=== PATIENT | male | born 1980 | race Two or more races ===

== ENCOUNTER 2019-05-09 22:32 | Emergency (ER) | payer MEDICAID, OTHER ==
[~2019-05-09] VITALS: Ht 165.1 cm; Wt 74.8 kg
--- NOTE | 2019-05-09 23:40 | NUR ---
C/C HEMMORRHOID PAIN SINCE FRIDAY, OTC CREAM WITH NO RELIEF
[2019-05-10 00:07] LABS: APPEARANCE,URINE Clear (CLEAR); BILIRUBIN,URINE Negative (NEGATIVE); BLOOD, URINE Negative Ery/uL (NEGATIVE); COLOR,URINE Yellow (YELLOW); KETONES,URINE Negative (NEGATIVE); LEUKOCYTE ESTERASE ,URINE Negative (NEGATIVE); NITRITE, URINE Negative (NEGATIVE); PROTEIN,URINE Negative (NEGATIVE); UGLUCOSE Negative (NEGATIVE); UROBILINOGEN,URINE 0.2 EU/dL (0.2)
--- NOTE | 2019-05-10 02:22 | NUR ---
Patient discharged to home in stable condition. Written and verbal after care instructions given. Patient verbalizes understanding of instruction. ambulatory with a steady gait noted. pt [id number] no acute distress noted, resp even and unlabored.
[2019-05-10 02:23] VITALS: BP 132/62
--- NOTE | 2019-05-10 02:25 | NUR ---
Patient discharged to home in stable condition. Written and verbal after care instructions given. Patient verbalizes understanding of instruction. Patient is ambulatory with a steady gait.
== END 2019-05-10 02:26 | disposition home or self-care (01) ==
LOC: ER 22:33 → EDSEX 22:33 → ER 05-10 02:26
DX: K62.89 Other specified diseases of anus and rectum (principal)
CPT/HCPCS: 81000-TC